=== PATIENT | male | born 1945 | race Caucasian/White ===

== ENCOUNTER 2016-12-21 14:26 | Emergency (ER) | payer MEDICARE, OTHER ==
[~2016-12-21] VITALS: Ht 188 cm; Wt 120.0 kg
[~2016-12-21 14:26] MED LIST: PRIL40CA; TOPR50TA; [UNRECOGNIZED DRUG - REMARK]
--- NOTE | 2016-12-21 14:38 | PD ---
HPI Chief Complaint: left flank pain Time Seen by Provider: 14:30 Travel History International Travel<30 days: No Contact w/Intl Traveler<30days: No History of Present Illness HPI Patient 70-year-old male with a history of kidney stones presents emergency department for evaluation of hematuria associated with significant left flank pain. Patient went to an urgent care facility was seen to be in significant pain and thus an ambulance was called for him. On my order the ambulance personnel delivered 6 g of morphine prior to arrival. On arrival the patient states she is feeling much better and is in not having any pain. Endorses mild nausea without vomiting no diarrhea and across patient weight loss of fever. Symptoms occurred just prior to arrival and resolved. They were initially severe. PFSH Past Medical History GERD: Yes Hypertension: Yes Social History Alcohol Use: No Tobacco Use: Yes (ONE PPD) Allergies-Medications (Allergen,Severity, Reaction): Coded Allergies: No Known Allergies (Verified , 12/21/16) Reported Meds & Prescriptions Reported Meds & Active Scripts Active Moca (Hydrocodone-Acetaminophen) 5-325 mg Tab 1 Tab PO Q6H PRN Reported Aspirin 81 (Aspirin) 81 Mg Tabdr 81 Mg PO DAILY Prilosec (Omeprazole Magnesium) 20 Mg Tab Unknown Dose PO DAILY Plavix (Clopidogrel Bisulfate) 75 Mg Tab 75 Mg PO DAILY Atenolol 25 Mg Tab Unknown Dose PO DIRECTED Amlodipine (Amlodipine Besylate) 2.5 Mg Tab Unknown Dose PO DAILY Review of Systems Except as stated in HPI: all other systems reviewed are Neg Physical Exam Narrative GENERAL: Well-developed well-nourished no obvious distress SKIN: Focused skin assessment warm/dry. HEAD: Atraumatic. Normocephalic. EYES: Pupils equal and round. No scleral icterus. No injection or drainage. ENT: No nasal bleeding or discharge. Mucous membranes pink and moist. NECK: Trachea midline. No JVD. CARDIOVASCULAR: Regular rate and rhythm. No murmur appreciated. RESPIRATORY: No accessory muscle use. Clear to auscultation. Breath sounds equal bilaterally. GASTROINTESTINAL: Abdomen soft, non-tender, nondistended. Hepatic and splenic margins not palpable. No CVA tenderness. MUSCULOSKELETAL: No obvious deformities. No clubbing. No cyanosis. No edema. NEUROLOGICAL: Awake and alert. No obvious cranial nerve deficits. Motor grossly within normal limits. Normal speech. PSYCHIATRIC: Appropriate mood and affect; insight and judgment normal. Data Data Last Documented VS Vital Signs Date Time Temp Pulse Resp B/P Pulse Ox O2 Delivery O2 Flow Rate FiO2 12/21/16 16:17 66 16 164/96 94 Room Air 12/21/16 14:42 98.0 Orders Complete Blood Count With Diff (12/21/16 14:37) Comprehensive Metabolic Panel (12/21/16 14:37) Prothrombin Time / Inr (Pt) (12/21/16 14:37) Act Partial Throm Time (Ptt) (12/21/16 14:37) Urinalysis - C+S If Indicated (12/21/16 14:37) Ct Abd/Pel W/O Iv Contrast (12/21/16 14:37) Iv Access Insert/Monitor (12/21/16 14:37) Ecg Monitoring (12/21/16 14:37) Oximetry (12/21/16 14:37) Sodium Chloride 0.9% Flush (Ns Flush) (12/21/16 14:45) Labs Laboratory Tests Test 12/21/16 12/21/16 14:50 15:40 White Blood Count 6.8 TH/MM3 Red Blood Count 4.56 MIL/MM3 Hemoglobin 14.2 GM/DL Hematocrit 41.6 % Mean Corpuscular Volume 91.1 FL Mean Corpuscular Hemoglobin 31.1 PG Mean Corpuscular Hemoglobin 34.2 % Concent Red Cell Distribution Width 13.4 % Platelet Count 174 TH/MM3 Mean Platelet Volume 8.3 FL Neutrophils (%) (Auto) 67.0 % Lymphocytes (%) (Auto) 23.4 % Monocytes (%) (Auto) 7.1 % Eosinophils (%) (Auto) 1.0 % Basophils (%) (Auto) 1.5 % Neutrophils # (Auto) 4.5 TH/MM3 Lymphocytes # (Auto) 1.6 TH/MM3 Monocytes # (Auto) 0.5 TH/MM3 Eosinophils # (Auto) 0.1 TH/MM3 Basophils # (Auto) 0.1 TH/MM3 CBC Comment DIFF FINAL Differential Comment Prothrombin Time 11.3 SEC Prothromb Time International 1.0 RATIO Ratio Activated Partial 29.1 SEC Thromboplast Time Sodium Level 143 MEQ/L Potassium Level 4.1 MEQ/L Chloride Level 111 MEQ/L Carbon Dioxide Level 24.8 MEQ/L Anion Gap 7 MEQ/L Blood Urea Nitrogen 21 MG/DL Creatinine 1.10 MG/DL Estimat Glomerular Filtration 66 ML/MIN Rate Random Glucose 120 MG/DL Calcium Level 9.4 MG/DL Total Bilirubin 0.4 MG/DL Aspartate Amino Transf 24 U/L (AST/SGOT) Alanine Aminotransferase 29 U/L (ALT/SGPT) Alkaline Phosphatase 48 U/L Total Protein 6.8 GM/DL Albumin 3.5 GM/DL Urine Collection Type CLEAN CATCH Urine Color ROSIE Urine Turbidity MOD Urine pH 6.5 Urine Specific [place] 1.015 Urine Protein 30 mg/dL Urine Glucose (UA) NEG mg/dL Urine Ketones 40 mg/dL Urine Occult Blood LARGE Urine Nitrite NEG Urine Bilirubin NEG Urine Leukocyte Esterase NEG Urine RBC INNUM /hpf Urine WBC 0-2 /hpf Urine Squamous Epithelial 0-5 /hpf Cells Urine Amorphous Sediment FEW Microscopic Urinalysis Comment CULT NOT INDICATED Urine Collection Time 1540 MDM Medical Decision Making Medical Screen Exam Complete: Yes Emergency Medical Condition: Yes Differential Diagnosis Kidney stone, UTI, renal colic, cystitis, acute kidney injury, acute abdomen unlikely. Narrative Course Last 24 hours Impressions Abdomen/Pelvis CT 12/21/16 1437 Signed Impressions: Service Date/Time: Wednesday, December 21, 2016 14:52 - CONCLUSION: 1. Passage of a calculus in the left collecting system which is slightly hydronephrotic. A 3- 4 mm calculus within the posterior urinary bladder. 2. Diverticulosis without diverticulitis. 3. Punctate nonobstructing bilateral renal calculi. 4. Moderate hepatic steatosis. Elías Jeter MD Shortly after obtaining the CAT scan result the patient was revisited and he has obtained what appears to be this kidney stone in the urine specimen. He has not had any additional pain while in the emergency department. Discussed with her need for follow-up with his urologist and I have given referral to Dr. Knox should he need it. He will be given a kidney stone to take for analysis. Discussed return to ED criteria and symptomatic management home. Short course of narcotic pain medication prescription should he experience any ureteral spasm. Diagnosis Primary Impression: Kidney stone Referrals: Luis Knox DO Med/Other Pt SpecificInfo: Prescription(s) given Scripts Hydrocodone-Acetaminophen (Moca)5-325 mg Tab1 Tab PO Q6H PRN (PAIN) #10 TAB Ref 0 Prov:Franc Starks MD 12/21/16 Disposition: 01 DISCHARGE HOME Condition: Stable Franc Starks MD Dec 21, 2016 14:38
[2016-12-21 14:42] VITALS: BP 144/98; PULSE 52; RESP 16; TEMP 98; O2SAT 98
[2016-12-21] MEDS ORDERED: SODIUM CHLORIDE 0.9% FLUSH 10 ML FLUSH IV FLUSH PRN (14:45)
[2016-12-21] MEDS ORDERED: AMLO2.5T PO (14:51)
[2016-12-21] MEDS ORDERED: ASPI-110 PO (14:51)
[2016-12-21] MEDS ORDERED: PLAV75TA29 PO (14:51)
[2016-12-21] MEDS ORDERED: ATEN25TA PO (14:51)
[2016-12-21] MEDS ORDERED: PRIL20TA2 PO (14:51)
[2016-12-21 15:07] LABS: AUTOMATED NEUTROPHIL # 4.5 TH/MM3 (1.8-7.7); BASOPHIL # 0.1 TH/MM3 (0-0.2); BASOPHIL % 1.5 % (0.0-2.0); EOSINOPHIL # 0.1 TH/MM3 (0-0.4); HEMATOCRIT 41.6 % (39.0-51.0); HEMO FLAGS DIFF FINAL; LYMPH % 23.4 % (9.0-44.0); LYMPHOCYTE # 1.6 TH/MM3 (1.0-4.8); MEAN CELL VOLUME 91.1 FL (80.0-100.0); MEAN CORPUSCULAR HEMOGLOBIN 31.1 PG (27.0-34.0); MEAN CORPUSCULAR HGB CONC 34.2 % (32.0-36.0); MONO % 7.1 % (0.0-8.0); PLATELET COUNT 174 TH/MM3 (150-450); RED BLOOD COUNT 4.56 MIL/MM3 (4.50-5.90); RED CELL DISTRIBUTION WIDTH 13.4 % (11.6-17.2); WHITE BLOOD COUNT 6.8 TH/MM3 (4.0-11.0)
[2016-12-21 15:15] LABS: CHLORIDE 111 MEQ/L (98-107); POTASSIUM 4.1 MEQ/L (3.5-5.1); SODIUM (NA) 143 MEQ/L (136-145)
[2016-12-21 15:19] LABS: ANION GAP 7 MEQ/L (5-15); BICARBONATE 24.8 MEQ/L (21.0-32.0); BLOOD UREA NITROGEN 21 MG/DL (7-18)
[2016-12-21 15:22] LABS: ALT (GPT) 29 U/L (12-78); APTT (PATIENT) 29.1 SEC (24.3-30.1); AST (GOT) 24 U/L (15-37); GLOMERULAR FILTRATION RATE 66 ML/MIN (>89); PROTHROMBIN TIME - PATIENT 11.3 SEC (9.8-11.6)
--- NOTE | 2016-12-21 15:22 | RADRPT ---
EXAM DATE/TIME: 12/21/2016 14:52 [facility] COMPARISON: No previous studies available for comparison. INDICATIONS : Left flank pain and hematuria. ORAL CONTRAST: No oral contrast ingested. RADIATION DOSE: 24.01 CTDIvol (mGy) MEDICAL HISTORY : Cardiovascular disease. Hypertension. Gastroesophageal reflux disease. SURGICAL HISTORY : Coronary artery stent. Bowel fissure repair ENCOUNTER: Initial ACUITY: 1 day PAIN SCALE: 5/10 LOCATION: Left flank TECHNIQUE: Volumetric scanning of the abdomen and pelvis was performed. Using automated exposure control and ad justment of the mA and/or kV according to patient size, radiation dose was kept as low as reasonably achievable to obtain optimal diagnostic quality images. DICOM format image data is available electro nically for review and comparison. FINDINGS: LOWER LUNGS: The visualized lower lungs are clear. LIVER: Decreased attenuation without lesion. There is no dilation of the biliary tree. No calcified gallst ones. SPLEEN: Normal size without lesion. PANCREAS: Within normal limits. KIDNEYS: Normal in size and shape. There is a 5 mm nonobstructing calculus right renal pelvis. 2 other puncta te calculi are seen in the right kidney. Mild hydronephrosis left kidney and slight hydroureter secon blake to passage of a calculus measuring 3-4 mm in the posterior inner bladder. ADRENAL GLANDS: Within normal limits. VASCULAR: There is no aortic aneurysm. BOWEL/MESENTERY: The stomach, small bowel, and colon demonstrate no acute abnormality. There is no free intraperitone al air or fluid. ABDOMINAL WALL: Within normal limits. RETROPERITONEUM: There is no lymphadenopathy. BLADDER: No wall thickening or mass. REPRODUCTIVE: Within normal limits. INGUINAL: There is no lymphadenopathy or hernia. MUSCULOSKELETAL: Within normal limits for patient age. CONCLUSION: 1. Passage of a calculus in the left collecting system which is slightly hydronephrotic. A 3- 4 mm ca lculus within the posterior urinary bladder. 2. Diverticulosis without diverticulitis. 3. Punctate nonobstructing bilateral renal calculi. 4. Moderate hepatic steatosis. Elías Jeter MD on December 21, 2016 at 15:19 Board Certified Radiologist. This report was verified electronically.
[2016-12-21 15:23] LABS: TOTAL BILIRUBIN ADULT 0.4 MG/DL (0.2-1.0)
[2016-12-21 15:24] LABS: ALKALINE PHOSPHATASE 48 U/L (45-117)
[2016-12-21 15:52] LABS: BLOOD, URINE LARGE (NEG); GLUCOSE,URINE NEG (NEG); KETONE, URINE 40 mg/dL (NEG); NITRITE,URINE NEG (NEG); PH, URINE 6.5 (5.0-8.5)
[2016-12-21 16:06] LABS: METHOD OF COLLECTION CLEAN CATCH; URINE COLOR AMBER (YELLW/STRAW)
[2016-12-21 16:07] LABS: RBC, URINE INNUM /hpf (0-3); WBC, URINE 0-2 /hpf (0-5)
[2016-12-21 16:08] LABS: COMMENT (UR) CULT NOT INDICATED; COMMENT2 (UR) MUCOUS PRESENT; CULTURE IF INDICATED CULT NOT INDICATED; SQUAMOUS EPITHELIAL CELL URINE 0-5 /hpf (0-5)
[2016-12-21 16:17] VITALS: BP 164/96; PULSE 66; RESP 16; O2SAT 94
[2016-12-21] MEDS ORDERED: NORC5TAB PO (16:23)
== END 2016-12-21 16:36 | disposition home or self-care (01) ==
LOC: EDBD → PHED 14:26
DX: N20.0 Calculus of kidney (principal); R11.0 Nausea; I10 Essential (primary) hypertension; F17.200 Nicotine dependence, unspecified, uncomplicated; Z87.442 Personal history of urinary calculi; Z87.19 Personal history of other diseases of the digestive system
CPT/HCPCS: 74176; 80053; 81001; 85025; 85610; 85730